=== PATIENT | male | born 1985 | race American Indian/Alaskan Native ===

== ENCOUNTER 2020-01-28 05:42 | Emergency (ER) | payer SELFPAY ==
[2020-01-28 05:58] VITALS: BP 117/68
--- NOTE | 2020-01-28 07:03 | XRay Report ---
CHEST 2 VIEWS INDICATION: chest pain. COMPARISON: None FINDINGS: SUPPORT DEVICES: None. HEART: Within normal limits. LUNGS/PLEURA: No acute air space or interstitial disease. No pneumothorax. ADDITIONAL FINDINGS: None. IMPRESSION: 1. No acute findings. Signer Name: Olivier Rodriguez MD Signed: 01/28/2020 6:59 AM Workstation Name: [id number]
== END 2020-01-28 16:00 | disposition left against medical advice (07) ==
LOC: ED 05:42
DX: R07.89 Other chest pain (principal); Z53.21 Procedure and treatment not carried out due to patient leaving prior to being seen by health care provider
CPT/HCPCS: 71046; 93005

== ENCOUNTER 2020-04-06 17:10 | Emergency (ER) | payer SELFPAY ==
[2020-04-06 17:28] VITALS: BP 139/80
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
== END 2020-04-06 18:01 ==
LOC: ED 17:10
DX: S41.112A Laceration without foreign body of left upper arm, initial encounter (principal); S41.111A Laceration without foreign body of right upper arm, initial encounter; X58.XXXA Exposure to other specified factors, initial encounter; Y93.89 Activity, other specified; Y92.89 Other specified places as the place of occurrence of the external cause; Y99.9 Unspecified external cause status